=== PATIENT | female | born 1955 | race Caucasian/White ===

== ENCOUNTER 2017-04-23 05:36 | Inpatient (IN) | payer OTHER ==
[2017-04-23] MEDS ORDERED: Losartan 50 MG Tab PO ONE (06:36)
[2017-04-23] MEDS ORDERED: ceFAZolin 2 GM in Premix Bag 1 BAG IV ONE (07:00)
[2017-04-23] MEDS ORDERED: HYDROmorphone/Normal Saline 15 MG/30 ML PCA IV PRN (07:15)
[2017-04-23] MEDS ORDERED: Naloxone 0.4 MG/ML SDV IVPUSH PRN (07:15)
[2017-04-23] MEDS ORDERED: Naloxone 0.4 MG/ML SDV IV PRN (07:18)
[2017-04-23] MEDS: Dextrose 5%-Lactated Ringers 1,000 ML IV SCH ×2 (07:20→14:25)
[2017-04-23] MEDS ORDERED: Dexamethasone 4 MG/ML SDV ONE (08:19)
[2017-04-23] MEDS ORDERED: Propofol 200 MG/20 ML SDV ONE (08:19)
[2017-04-23] MEDS ORDERED: Ondansetron 4 MG/2 ML SDV ONE (08:19)
[2017-04-23] MEDS ORDERED: Succinylcholine/Normal Saline 200 MG/10 ML Syringe ONE (08:19)
[2017-04-23] MEDS ORDERED: Midazolam 1 MG/ML 2 ML SDV ONE (08:19)
[2017-04-23] MEDS ORDERED: fentaNYL 250 MCG/5 ML SDV ONE (08:19)
[2017-04-23] MEDS ORDERED: Neostigmine Methylsulfate 1 MG/ML 5 ML Syringe ONE (08:19)
[2017-04-23] MEDS ORDERED: Rocuronium 50 MG/5 ML Vial ONE (08:19)
[2017-04-23] MEDS ORDERED: hydrOXYzine HCl 50 MG/ML SDV IM ONE (11:42)
[2017-04-23] MEDS ORDERED: Meperidine PF 75 MG/ML Syringe IM ONE (11:43)
[2017-04-23] MEDS ORDERED: hydrOXYzine HCl 25 MG Tab PO PRN (13:21)
[2017-04-23] MEDS ORDERED: hydrOXYzine HCl 50 MG/ML SDV IM PRN (13:21)
[2017-04-23] MEDS ORDERED: Ondansetron 4 MG/2 ML SDV IVPUSH PRN (13:22)
[2017-04-23] MEDS ORDERED: Metoclopramide 10 MG/2 ML SDV IVPUSH PRN (13:23)
--- NOTE | 2017-04-23 14:27 | PCM.CONS ---
H&P History of Present Illness - General Date of Service: 04/23/17 Admit Problem/Dx: Admission Diagnosis/Problem Admission Diagnosis/Problem Thyroidectomy Source of Information: Patient History Limitations: Reports: No Limitations - History of Present Illness Initial Comments - Free Text/Narative: I was asked by Dr. Melgar to see Livia regarding levothyroxine dosing status post total thyroidectomy. She had moderate pain following surgery but pain has improved over the past couple of hours. No complaints of shortness of breath or hoarse voice. She has been requiring supplemental oxygen since surgery. At this time she does not have symptoms to suggest hyper or hypothyroid state. - Related Data Allergies/Adverse Reactions: Allergies Allergy/AdvReac Type Severity Reaction Status Date / Time erythromycin base Allergy Cannot Verified 04/20/17 14:11 Remember lisinopril Allergy Cannot Verified 04/20/17 14:11 Remember Home Medications: Home Meds Losartan [Cozaar] 100 mg PO DAILY 04/20/17 [History] Multivitamin with Minerals [Multiple Vitamin] 1 tab PO DAILY 04/20/17 [History] Torsemide 5 mg PO DAILY 04/20/17 [History] Levothyroxine [Levothroid] 137 mcg PO DAILY #30 tab 04/23/17 [Rx] Past Medical History HEENT History: Reports: Impaired Vision Cardiovascular History: Reports: Hypertension Gastrointestinal History: Reports: None Genitourinary History: Reports: None [employer]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: , Spontaneous Musculoskeletal History: Reports: Fracture, Other (See Below) Other Musculoskeletal History: history of right collar bone fracture Endocrine/Metabolic History: Reports: Hypothyroidism, Other (See Below) Other Endocrine/Metabolic History: rigth thyroid removed at age 26 Oncologic (Cancer) History: Reports: Ovarian - Infectious Disease History Infectious Disease History: Reports: Chicken Pox, Measles, Mumps - Past Surgical History HEENT Surgical History: Reports: LASIK Cardiovascular Surgical History: Reports: None GI Surgical History: Reports: Colonoscopy Female Surgical History: Reports: Hysterectomy, Salpingo-Oophorectomy Endocrine Surgical History: Reports: Thyroidectomy Musculoskeletal Surgical History: Reports: None Oncologic Surgical History: Reports: None Social & Family History - Family History Family Medical History: Noncontributory - Tobacco Use Smoking Status *Q: Former Smoker Packs/Tins Daily: 1 Used Tobacco, but Quit: Yes Month Tobacco Last Used: 1989 - Caffeine Use Caffeine Use: Reports: Coffee - Alcohol Use Alcohol Use History: No - Recreational Drug Use Recreational Drug Use: No H&P Review of Systems - Review of Systems: Review Of Systems: See Below Free Text/Narrative: A complete 12 point review of systems was obtained. Pertinent positives and negatives are noted in the history of present illness. All other systems were reviewed and were negative except as noted. Exam - Exam Exam: See Below - Vital Signs Vital Signs: Last Vital Signs Temp 36.2 C 04/23/17 13:00 Pulse 60 04/23/17 13:00 Resp 16 04/23/17 13:00 BP 128/68 04/23/17 13:00 Pulse Ox 95 04/23/17 13:53 Weight: 88.167 kg - Exam Quality Assessment: Supplemental Oxygen General: Alert, Oriented, Cooperative. No: Mild Distress HEENT: Conjunctiva Clear. No: Scleral Icterus Neck: Supple Lungs: Normal Respiratory Effort Cardiovascular: Regular Rate, Regular Rhythm Abdomen: Soft. No: Distention Back Exam: Full Range of Motion Extremities: Normal Inspection Skin: Warm, Dry Neuro Extensive - Mental Status: Alert, Oriented x3, Nl Response to Commands Neuro Extensive - Motor, Sensory, Reflexes: CN II-XII Intact. No: Dysarthria, Tremor Psychiatric: Alert, Normal Affect Consult PN Assessment/Plan POD#: 0 (1) Goiter SNOMED Code(s): 9250013 Code(s): E04.9 - NONTOXIC GOITER, UNSPECIFIED Current Visit: Yes (2) Acquired hypothyroidism SNOMED Code(s): 650059341 Code(s): E03.9 - HYPOTHYROIDISM, UNSPECIFIED Current Visit: Yes Problem List Initiated/Reviewed/Updated: Yes My Orders last 24 hours: My Active Orders 04/24/17 07:30 Levothyroxine 112 mcg PO ACBREAKFAST Levothyroxine 25 mcg PO ACBREAKFAST Plan: Assessment and plan - Multinodular goiter with acquired hypothyroidism - plan to initiate levothyroxine at 1.6 mcg/kg. She should have her thyroid rechecked in 2-4 weeks. -Initiate levothyroxine 137 mcg daily -I did send a prescription for levothyroxine to [facility] at her request -Thyroid testing with TSH and free T4 in 2-4 weeks -Additional postop cares per surgical team Reji De Jesus M.D. Requesting Provider: Dr. Melgar Date Consult Requested: 04/23/17 Reason for Consult: Levothyroxin dosing status post thyroidectomy Patient History Reviewed: Yes Admission H&P Reviewed: No (Not available) Notified Requestor: No Time Spent (in minutes): 30
[2017-04-23] MEDS: ceFAZolin 2 GM in Sodium Chloride 0.9% 50 ML IV SCH (16:50)
[2017-04-24] MEDS: ceFAZolin 2 GM in Sodium Chloride 0.9% 50 ML IV SCH ×2 (00:03→07:27)
[2017-04-24] MEDS: Dextrose 5%-Lactated Ringers 1,000 ML IV SCH (00:09)
[2017-04-24] MEDS ORDERED: Acetaminophen 325 MG Tab PO PRN (03:29)
[2017-04-24] MEDS ORDERED: HYDROmorphone 2 MG Tab PO PRN (03:30)
[2017-04-24] MEDS ORDERED: Levothyroxine 25 MCG Tab PO SCH (07:30)
[2017-04-24] MEDS ORDERED: Levothyroxine 112 MCG Tab PO SCH (07:30)
[2017-04-24] MEDS ORDERED: Losartan 50 MG Tab PO SCH (09:00)
[2017-04-24] MEDS ORDERED: Pneumococcal Polyvalent-23 Vaccine 0.5 ML SDV IM ONE (09:00)
[2017-04-24 09:26] VITALS: BP 155/83
--- NOTE | 2017-04-27 12:54 | DISCH ---
FINAL DIAGNOSIS: Large left thyroid multinodular goiter with substernal component creating pressure symptoms. SECONDARY DIAGNOSES: 1. History of hypertension. 2. History of primary hyperparathyroidism. OPERATIVE PROCEDURE: This was done on 04/23/2017, completion (left lobe and isthmus) thyroidectomy including substernal thyroid summary. HOSPITAL COURSE: This is a 61-year-old presenting with progressive pressure symptoms related to a large multinodular goiter in the left lobe. The patient is status post previous right thyroid lobectomy for similar problems related to pressure. Plan is to proceed with a completion thyroidectomy which was accomplished on the date of admission. This included some significant substernal component of the gland. The patient was noted to have mild primary hyperparathyroidism and the plan was to if an obvious parathyroid adenoma our goal is during the course of the thyroidectomy to remove that. However, both parathyroids on the left side were identified and were small and normal in appearance. Postoperatively, the patient had no significant problems. Due to the large size of the goiter and potential space left upon its removal. She is sent home with a Dilshad-Jones drain. This would be removed this coming Sunday, i.e. 3 days from now. Her postoperative calcium on 04/24/2017 remained in stable and normal range the effect of continued adequate parathyroid function. The patient will be discharged home with Tylenol and/or Dilaudid as needed for pain, the full replacement dose of Synthroid endoscopically by the hospitalist at 137 mcg per day. The patient will be given a prescription for that with instructions to have a TSH obtained in roughly 3 months and should be following up with Maren Rosales, this coming Sunday and with Dr. Melgar in [facility] on 05/02/2017.
--- NOTE | 2017-04-30 14:26 | OR ---
DATE OF PROCEDURE: 04/23/2017 PREOPERATIVE DIAGNOSIS: Multinodular goiter of left thyroid lobe with associated pressure symptoms. POSTOPERATIVE DIAGNOSIS: Large multinodular goiter of left thyroid lobe with associated pressure symptoms and substernal thyroid component. PROCEDURE: Completion (left lobe and isthmus) thyroidectomy including a substernal thyroid (11251). ANESTHESIA: General. SALES SPECIAL AGENT: Maren Rosales PA-C and BECKY Moore. INDICATION FOR PROCEDURE: This is a 61-year-old presenting with an enlarging multinodular goiter on the left side and underwent a previous right thyroid lobectomy for similar problems. The mass is large enough that is causing substantial pressure symptoms at this point making a medical management unlikely to be adequate. The plan is to proceed with a completion thyroidectomy. If there is some concern regarding the quality of the parathyroid perfusion or recurrent laryngeal nerve, we might perhaps leave a small rim of thyroid tissue posteriorly. Otherwise intent will be to proceed with a total lobectomy. The patient has primary hyperparathyroidism at this point which, in and of itself, is not at a stage that would require surgical intervention. However, on dissection on the left thyroid area, if an obvious parathyroid adenoma is identified then that would be excised especially if the normal-appearing parathyroid could be identified concurrently. Potential risks of the procedure including bleeding, infection, and injury to underlying structures such as recurrent laryngeal nerve plus divided parathyroid glands were all reviewed, and the patient wishes to proceed. DETAILS OF PROCEDURE: The patient was taken to the operating room and placed in a supine position with a roll underneath her shoulders. General endotracheal anesthesia was induced, the upper chest and neck areas were prepped and draped. The previous collar incision was reused. This was extended somewhat toward the left and continued down through the skin and subcutaneous tissue and platysma layers. Subplatysmal flaps were then raised superiorly and inferiorly, and the midline fascia divided. The strap muscles were then reflected off the left thyroid lobe and this revealed a quite large thyroid lobe as expected with a substantial substernal component. The substernal component was initially mobilized upward bluntly and that allowed division of the inferior thyroid vein. All of the vascular divisions in this case were undertaken with a Sonosurg type instrument. At the point, the upper pole vessels were isolated and then similarly divided. This then allowed a more medial mobilization of the left thyroid lobe. The branches of the inferior thyroid artery were then divided flush with the thyroid capsule and thus maintained blood supply to the parathyroid as well as staying out of the plane of the recurrent laryngeal nerve. The thyroid was then mobilized medially and attachments to the trachea were then sequentially divided as well, including the isthmus which was still in place. The intact isthmus and thyroid lobe were then delivered from the field. The area was inspected, two normal-appearing parathyroid glands were identified on the left side. Neither one of these had any suggestion of being abnormal with them being predominantly fat filled and quite small. Thus these both appeared to be satisfactory. At that point, no further problems noted. Because of the large empty space that was left after removal of this goiter, a 7-Khmer Dilshad-Jones drain was then placed through a stab wound lateral to the incision on the left side and placed into that area. The incision was then closed with some 3-0 Vicryl stitch at the midline fascia, the platysmal layers with 4-0 Vicryl stitch and the skin with a 5-0 Vicryl subcuticular stitch and Steri-Strips were applied. The patient was taken to the recovery room in satisfactory condition. Physician doctor's assistant Maren Rosales, played an essential role in assisting in this case, helping to position the patient, retract structures as needed, as well as suturing and cutting sutures when indicated. Her presence improved patient safety and decreased operative time. Chencho Melgar MD /[id number]
== END 2017-04-24 09:55 | disposition home or self-care (01) | DRG 627 ==
LOC: JP.SDS 05:36 → JP.MS 05:36 → EDSTATUS 08:45 → JP.2SS 11:40
PROVIDERS: ADMIT Surgery; ATTEND Surgery
PROC: 0GTG0ZZ Resection of Left Thyroid Gland Lobe, Open Approach (ICD-10-PCS; principal; 2017-04-23)
DX: E04.2 Nontoxic multinodular goiter (principal); I10 Essential (primary) hypertension; E03.9 Hypothyroidism, unspecified; E21.3 Hyperparathyroidism, unspecified; E66.9 Obesity, unspecified; Z68.35 Body mass index [BMI] 35.0-35.9, adult; Z88.1 Allergy status to other antibiotic agents; Z88.8 Allergy status to other drugs, medicaments and biological substances
CPT/HCPCS: 36415; 80048; 83735; 84100; 85027; 88307; 88331; 88334; 94762; A9270-GY; J0690; J1100; J1170; J2175; J2250; J2405; J2704; J3010; J3410; J7042; J7050

== ENCOUNTER 2018-05-16 07:35 | Day surgery (SDC) | payer OTHER ==
[~2018-05-16 07:35] MED LIST: Bupivacaine 0.5% 50 ML MDV ONE; Lidocaine 1% with EPINEPHrine 1:100,000 50 ML MDV ONE; Midazolam 1 MG/ML 2 ML SDV ONE; Propofol 200 MG/20 ML SDV ONE; fentaNYL 100 MCG/2 ML SDV ONE
[2018-05-16] MEDS ORDERED: ceFAZolin 1 GM in Premix Bag 1 BAG IV ONE (08:00)
[2018-05-16] MEDS ORDERED: Dextrose 5%-Lactated Ringers 1,000 ML IV SCH (08:00)
[2018-05-16] MEDS ORDERED: Acetaminophen 500 MG Tab PO ONE (08:00)
[2018-05-16] MEDS ORDERED: Neostigmine Methylsulfate 1 MG/ML 5 ML Syringe ONE (09:12)
[2018-05-16] MEDS ORDERED: Ondansetron 4 MG/2 ML SDV ONE (09:12)
[2018-05-16] MEDS ORDERED: Rocuronium 50 MG/5 ML Vial ONE (09:12)
[2018-05-16] MEDS ORDERED: Glycopyrrolate 0.2 MG/ML 5 ML MDV ONE (09:12)
[2018-05-16] MEDS ORDERED: Dexamethasone 4 MG/ML SDV ONE (09:12)
[2018-05-16] MEDS ORDERED: Bupivacaine 0.5%/EPINEPHrine 1:200,000 50 ML MDV ONE (09:59)
[2018-05-16] MEDS ORDERED: fentaNYL 250 MCG/5 ML SDV ONE (10:06)
[2018-05-16] MEDS ORDERED: fentaNYL 100 MCG/2 ML SDV IVPUSH ONE (11:18)
[2018-05-16] MEDS ORDERED: Ondansetron 4 MG/2 ML SDV IVPUSH ONE (12:03)
[2018-05-16] MEDS ORDERED: Metoclopramide 10 MG/2 ML SDV IVPUSH ONE (12:04)
[2018-05-16 13:53] VITALS: BP 140/71
--- NOTE | 2018-05-27 09:14 | OR ---
DATE OF PROCEDURE: 05/16/2018 PREOPERATIVE DIAGNOSIS: Hypoechoic mass, left thyroid bed. POSTOPERATIVE DIAGNOSIS: Cystic lesion, left thyroid bed adherent to a probable parathyroid gland. PROCEDURE PERFORMED: Excision of cystic lesion left thyroid bed, including removal of adherent probable parathyroid gland ([id number], [id number]). ANESTHESIA: General. RESOURCING ADVISOR: Maren Rosales PA-C, BECKY Orozco INDICATION FOR PROCEDURE: This is a 62-year-old with history of papillary carcinoma of the thyroid, who, on followup, has a hypoechoic lesion in the left thyroid bed. After preop evaluation and discussion, she wished to proceed with excision of this. Potential risks including bleeding, infection, injury to the recurrent laryngeal nerve, parathyroid glands, or other structures in the area, possible recurrence of lesion over time were all reviewed, and the patient wishes to proceed. DETAILS OF PROCEDURE: The patient was taken to the operating room, and after general endotracheal anesthesia was induced, the head was turned slightly toward the right and the upper chest and neck areas were prepped and draped. In the skin crease over the left thyroid bed, an incision was made and carried down through the skin and subcutaneous tissue and through the platysmal layer. Subplatysmal flaps were then raised slightly inferiorly and superiorly, and further dissection then continued downward in the area medial to the jugular vein and carotid artery. At that point, a cystic lesion was identified. This was eventually dissected free from surrounding soft tissues. This measured 6 cm in length prior to it being decompressed. It had a clear serous border, and it did not appear to have any direct adherence to any vascular structures. What appeared to be parathyroid gland was adherent to the surface of the cystic mass and was excised, along with the mass, as this was the one component of tissue that did appear to be adherent to the cystic mass. Once excised, no further problems were noted. The soft tissues over the plane of the area that had been excised were initially approximated with [id number] 3-0 Vicryl stitch. The platysmal layer was closed with 4-0 Vicryl running stitch and the skin with a 5-0 Vicryl subcuticular stitch. Steri-Strips were applied. The patient was taken to the recovery room in satisfactory condition. Physician bilingual office assistant, Maren Rosales, played an essential role in assisting in this case, helping to position the patient, retract structures as needed, as well as suturing and cutting sutures when indicated. Her presence improved the patient's safety and decreased the operative time. Chencho Melgar MD Job #: [id number]
== END 2018-05-16 14:01 | disposition home or self-care (01) ==
LOC: JP.SDS 07:35
PROVIDERS: ATTEND Surgery
DX: D18.1 Lymphangioma, any site (principal); E66.9 Obesity, unspecified; Z85.850 Personal history of malignant neoplasm of thyroid
CPT/HCPCS: 60200; 60500; 76998; 88305; A9270; J0690; J1100; J2250; J2405; J2704; J2710; J3010; J7042

== ENCOUNTER 2019-07-08 06:47 | Day surgery (SDC) | payer MEDICARE, OTHER ==
[2019-07-08] MEDS ORDERED: Propofol 200 MG/20 ML SDV ONE (07:09)
[2019-07-08] MEDS ORDERED: fentaNYL 100 MCG/2 ML SDV ONE (07:10)
[2019-07-08] MEDS ORDERED: Midazolam 1 MG/ML 2 ML SDV ONE (07:10)
[2019-07-08] MEDS ORDERED: Dextrose 5%-Lactated Ringers 1,000 ML IV SCH (07:30)
[2019-07-08 12:14] VITALS: BP 164/88; PULSE 76
--- NOTE | 2019-07-10 13:10 | OR ---
DATE OF PROCEDURE: 07/08/2019 SURGEON: Chencho Melgar MD PREOPERATIVE DIAGNOSIS: Indications for screening colonoscopy. POSTOPERATIVE DIAGNOSIS: Normal screening colonoscopy. OPERATIVE PROCEDURE: Screening colonoscopy. ANESTHESIA: IV sedation. INDICATIONS FOR PROCEDURE: This is a 63-year-old with no personal or family history of colon neoplasia, presenting for a screening colonoscopy. Potential risks of the procedure including bleeding and perforation were discussed, and the patient wishes to proceed. DETAILS OF PROCEDURE: The patient was taken to the operating room and placed in a left lateral decubitus position. IV sedation was administered, after which the initial digital rectal exam was performed and was unremarkable. Colonoscope was then passed into the rectum with retroflexion revealing uncomplicated hemorrhoidal columns. Scope was then eventually passed to the level of the cecum. The prep was quite good. To that level, no abnormalities were noted. Specifically, there were no areas of diverticular disease, no areas of colitis, and no polyps or other signs of neoplasia. Scope was then withdrawn, the above findings were reconfirmed, and the patient tolerated the procedure well. There were no evident complications. Given the lack of personal or family history of colon polyps and normal exam today, next followup colonoscopy should be in at least 10 years. Chencho Melgar MD /[id number]
== END 2019-07-08 12:30 | disposition home or self-care (01) ==
LOC: JP.SDS 06:47
PROVIDERS: ATTEND Surgery
DX: Z12.11 Encounter for screening for malignant neoplasm of colon (principal); K64.9 Unspecified hemorrhoids; I10 Essential (primary) hypertension; E21.3 Hyperparathyroidism, unspecified; E66.9 Obesity, unspecified; Z88.8 Allergy status to other drugs, medicaments and biological substances; Z88.1 Allergy status to other antibiotic agents
CPT/HCPCS: G0121; J2250; J2704; J3010; J7042